=== PATIENT | male | born 1970 | race African-American/Black ===

== ENCOUNTER 2022-10-24 14:05 | Outpatient (CLI) | payer SELFPAY ==
--- NOTE | 2022-10-24 16:27 | XRAY Report ---
PROCEDURE: Wrist 3 View RT INDICATIONS: JOINT PAIN RIGHT WRIST. TECHNIQUE: 3 views of the wrist were acquired. COMPARISON: None. FINDINGS: Substantial degenerative changes of the radiocarpal joint present. Bony fragments present adjacent to the distal pole of the scaphoid, may reflect prior scaphoid fracture but other donor sites are possi ble, presumably sequela of remote trauma or degenerative change. Widening of the scapholunate interva l, approximately 5 mm. No substantial proximal migration of the capitate identified. Small bony fragm ent present at the dorsal aspect of the wrist on the lateral view. IMPRESSION: Small bony fragment present at the dorsal aspect of the wrist on the lateral view could indicate sequ ac of triquetral avulsion fracture, age indeterminate. Correlation with point tenderness and be help ful. 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 Widening of the scapholunate interval suspicious for scapholunate ligament injury. If symptoms persist, follow-up radiographs and/or CT or MRI may be helpful for further evaluation. Reviewed by: Nba Mantilla MD on 10/24/2022 4:26 PM PDT Approved by: Nba Mantilla MD on 10/24/2022 4:26 PM PDT Station ID: [id number]
--- NOTE | 2022-10-24 16:30 | XRAY Report ---
PROCEDURE: Chest 2 View X-Ray INDICATIONS: COUGH, CHRONIC. TECHNIQUE: 2 views of the chest were acquired. COMPARISON: None. FINDINGS: Surgical changes and devices: None. Lungs and pleura: Blunting of the left costophrenic angle. Nonspecific bibasilar opacities. No pneum othorax identified. Mediastinum: Cardiac silhouette is at the upper limits of normal in size. Bones and chest wall: No suspicious bony lesions. Overlying soft tissues appear unremarkable. IMPRESSION: 1. Blunting of the left costophrenic angle may represent a small pleural effusion or scarring. 2. Nonspecific bibasilar pulmonary opacities, could represent atelectasis but aspiration or pneumonia are difficult to exclude. Reviewed by: Nba Mantilla MD on 10/24/2022 4:29 PM PDT Approved by: Nba Mantilla MD on 10/24/2022 4:29 PM PDT Station ID: [id number]
== END 2022-10-24 14:06 | disposition home or self-care (01) ==
LOC: LAB.N 14:05 → DI.N 14:06
PROVIDERS: ATTEND Specialist
DX: R05.3 Chronic cough (principal); M19.031 Primary osteoarthritis, right wrist

== ENCOUNTER 2022-10-24 14:36 | Outpatient (CLI) | payer SELFPAY ==
[2022-10-24 17:53] LABS: BASOPHILS % (AUTO) 0.8 %; EOSINOPHILS # (AUTO) 0.1 10^3/uL (0.0-0.7); EOSINOPHILS % (AUTO) 1.9 %; HCT - HEMATOCRIT 48.7 % (42.0-52.0); HGB - HEMOGLOBIN 16.1 g/dL (14.0-18.0); LYMPHOCYTES # (AUTO) 1.9 10^3/uL (1.5-3.5); LYMPHOCYTES % (AUTO) 36.4 %; MEAN CORPUSCULAR HGB CONC 33.1 g/dL (32.0-36.0); MEAN CORPUSCULAR VOLUME 102.7 fL (80.0-94.0); MEAN PLATELET VOLUME 12.9 fL (7.4-11.4); MONOCYTES # (AUTO) 0.6 10^3/uL (0.0-1.0); MONOCYTES % (AUTO) 11.8 %; NEUTROPHILS # (AUTO) 2.5 10^3/uL (1.5-6.6); NEUTROPHILS % (AUTO) 49.1 %; PLT - PLATELET COUNT 116 10^3/uL (130-450); RED BLOOD COUNT 4.74 10^6/uL (4.70-6.10); RED CELL DISTRIBUTION WIDTH 11.9 % (12.0-15.0); WHITE BLOOD COUNT 5.2 x10^3/uL (4.8-10.8)
[2022-10-24 18:09] LABS: ALBUMIN 3.8 g/dL (3.2-5.5); BILIRUBIN,TOTAL 1.5 mg/dL (0.2-1.0); CALCIUM 9.4 mg/dL (8.5-10.3); CREATININE 0.9 mg/dL (0.6-1.2); POTASSIUM 3.6 mmol/L (3.5-5.0); TOTAL PROTEIN 7.5 g/dL (6.7-8.2)
== END 2022-10-24 14:37 | disposition home or self-care (01) ==
LOC: LAB.N 14:36
PROVIDERS: ATTEND Specialist
DX: I10 Essential (primary) hypertension (principal)
CPT/HCPCS: 36415; 80053; 85025